=== PATIENT | male | born 1955 | race Caucasian/White ===

== ENCOUNTER 2018-07-06 11:02 | Inpatient (IN) ==
[2018-07-06] MEDS ORDERED: Chlorhexidine Gluconate 2% 1 Pack (2 Cloths) TOPICAL ONE (11:42)
[2018-07-06] MEDS ORDERED: Metoprolol Tartrate 25 MG Tablet PO ONE (11:42)
[2018-07-06] MEDS ORDERED: Dextrose 5%/NaCl 0.9% Inj 1,000 ML IV.SIG SCH (12:00)
[2018-07-06] MEDS ORDERED: Sodium Chlor 0.9% Inj 500 ML IV.SIG SCH (12:00)
--- NOTE | 2018-07-06 12:31 | XR ---
EXAM DATE: 07/06/2018 12:22 PM EDT AGE/SEX: 62 years / Male INDICATIONS: Evaluate for pneumothorax, pneumonia and communicable disease. Pre-op for colon resect ion. CLINICAL DATA: This is the patient's initial encounter. Patient reports that signs and symptoms have been present for 1 day and indicates a pain score of 0/10. MEDICAL/SURGICAL HISTORY: None. Tonsillectomy. Discectomy, lumbar. COMPARISON: No prior exams available for comparison. FINDINGS: The cardiac silhouette is enlarged in transverse diameter. The lungs are free of acute parenchymal op acity. No pulmonary nodules or pleural effusions are identified. CONCLUSION: Cardiomegaly. No acute pulmonary disease. Electronically signed by: Eric Reina MD 07/06/2018 12:30 PM EDT
[2018-07-06] MEDS ORDERED: Famotidine PF Inj 20 MG/2 ML Vial ONE (12:46)
[2018-07-06] MEDS ORDERED: fentaNYL Citrate Inj 100 MCG/2 ML Ampul ONE ×2 (12:46→15:44)
[2018-07-06] MEDS ORDERED: Bupivacaine PF 0.5% Inj 30 ML Vial ONE (13:17)
[2018-07-06] MEDS ORDERED: Glycopyrrolate Inj 1 MG/5 ML Syringe IV.PUSH ONE (13:31)
[2018-07-06] MEDS ORDERED: Lidocaine PF 1% Inj 5 ML Syringe INFILTRATN ONE (13:31)
[2018-07-06] MEDS ORDERED: Neostigmine Inj 5 MG/5 ML Syringe IV.PUSH ONE (13:31)
[2018-07-06] MEDS ORDERED: *Meperidine Inj 25 MG/ML Vial PERIprocedural Use ONLY ONE (15:38)
[2018-07-06] MEDS ORDERED: Potassium Chlor 40 mEq Premix 40 MEQ/100 ML PIGGYBACK IV.SIG PRN (15:39)
[2018-07-06] MEDS ORDERED: Potassium Chlor 20 mEq Premix 20 MEQ/100 ML PIGGYBACK IV.SIG PRN (15:39)
[2018-07-06] MEDS ORDERED: Morphine Inj 4 MG/ML Vial ONE (15:44)
[2018-07-06] MEDS ORDERED: Zolpidem Tartrate 5 MG Tablet PO PRN (15:51)
[2018-07-06] MEDS ORDERED: Ketorolac Inj 30 MG/ML (IVP) Vial IV.PUSH PRN (15:51)
[2018-07-06] MEDS ORDERED: *morphine SULFATE 4 MG/ML PERIprocedure ONLY ONE ×3 (15:53→16:13)
[2018-07-06] MEDS ORDERED: Naloxone Inj 0.4 MG/ML Vial IV.PUSH PRN (16:04)
[2018-07-06] MEDS ORDERED: Morphine Inj 30 MG/30 ML PCA.VIAL PCA ONE (16:13)
[2018-07-06] MEDS: Morphine Inj 30 MG/30 ML PCA.VIAL PCA PRN (16:15)
[2018-07-06] MEDS ORDERED: KCL 20 mEq/D5W/LR Inj 1,000 ML ONE (16:15)
[2018-07-06 16:21] LABS: Baso % (Auto) 0.3 % (0.0-2.0); Eos % (Auto) 0.3 % (0.0-4.0); Lymph # (Auto) 0.8 th/mm3 (1.0-4.8); Lymph % (Auto) 6.3 % (9.0-44.0); Mean Corpuscular HGB Conc 35.6 % (32.0-36.0); Mean Corpuscular Hemoglobin 33.8 pg (27.0-34.0); Mean Corpuscular Volume 94.7 fL (80.0-100.0); Mean Platelet Volume 7.3 fL (7.0-11.0); Mono # (Auto) 0.3 th/mm3 (0.0-0.9); Mono % (Auto) 2.8 % (0.0-8.0); Neut # (Auto) 10.9 th/mm3 (1.8-7.7); Neut % (Auto) 90.3 % (16.0-70.0); Platelet Count 174 th/mm3 (150-450); Red Blood Count 4.43 mil/mm3 (4.50-5.90); Red Cell Distribution Width 13.1 % (11.6-17.2); White Blood Count 12.1 th/mm3 (4.0-11.0)
--- NOTE | 2018-07-06 16:22 | MP ---
cc: Robert Bergman MD, Regina MD Zulfiqar,Tiffany WHITING DATE OF OPERATION: 07/06/2018 PREOPERATIVE DIAGNOSIS: Sigmoid colon cancer. POSTOPERATIVE DIAGNOSIS: Sigmoid colon cancer. PROCEDURE PERFORMED: Sigmoid colectomy, low anterior resection. ANESTHESIA: General endotracheal. SURGEON: Robert Bergman MD AIR GUN OPERATOR: Eric Hopper MD ESTIMATED BLOOD LOSS: 200 mL. OPERATIVE TIME: 1 hour and 20 minutes. OPERATIVE FINDINGS: This patient was referred to [facility] by Dr. Calixto with a bulky sigmoid colon lesion right above the rectosigmoid junction. A preoperative CT scan showed only cysts in the liver. For this reason, a sigmoid colectomy was recommended. At surgery, exploration of the abdominal cavity revealed that the liver did have multiple cysts palpable in the right lobe and the left lobe. No metastatic disease was identified. The gallbladder was palpably normal and decompressed. The stomach was also palpably normal, as was the remainder of the small bowel and the colon. No metastatic lesions were identified anywhere in the abdominal cavity. The lesion was a bulky lesion just above the cul-de-sac, requiring mobilization of the rectum to the pelvic floor and the anterior cul-de-sac. An anastomosis was done in the upper mid portion of the rectum and was approximately 12 cm from the anal verge. A double stapled colorectal anastomosis was done because of the size of the rectum. OPERATIVE TECHNIQUE: The patient was placed on the table in the supine position. After adequate general endotracheal anesthesia, the legs were placed in the perineal lithotomy position and the abdomen and perineum were prepped and draped in usual manner. A transverse infraumbilical skin incision was made and carried down through subcutaneous tissue and the rectus muscles, and the peritoneal cavity was entered with the above-mentioned findings. Next, the sigmoid colon was mobilized along its peritoneal reflection up to but not including the splenic flexure. The inferior mesenteric artery was doubly clamped, cut and doubly ligated with 0 Vicryl ligature and then the inferior mesenteric vein was clamped, cut and ligated as well. It should be mentioned that the left and right ureters were identified and protected at all times. Upon entering the retrorectal space, dissection was taken down with electrocautery to the pelvic floor and laterally. The pelvic peritoneum was incised and the rectum was mobilized. The anterior cul-de-sac was mobilized just below the lesion, which was easily palpable in the lower sigmoid. The anterior cul-de-sac was developed a portion of the way down the cul-de-sac, but not fully anteriorly. Approximately 5 cm below the lesion, the mesorectum was cleared with electrocautery and the lateral stalks were clamped, cut and ligated. Next, the cleared rectum was stapled closed with a TX 60 green staple height stapler. Because of the size of the rectum, we could not use a pursestring. Next, the rectum was divided and the point in the very redundant sigmoid colon was chosen for division. The sigmoid colon mesentery was successively clamped, cut and ligated and the sigmoid colon was cleared at the point chosen for anastomosis. Once this was cleared, the pursestring stapling device was used on the sigmoid and the bowel was divided. A #33 Ethicon EEA stapler anvil was placed in the proximal bowel and the proximal pursestring was tied. Dr. Hopper then went below and placed the EEA instrument transanally and the trocar was brought out anterior to the transverse staple line. Once this was done, the instrument was connected, closed and fired, creating the circular anastomosis. There was no tension on the anastomosis and the blood supply was excellent. Dr. Hopper then did a proctosigmoidoscopy examination, examining the anastomosis with air insufflation and saline solution in the pelvis. No air leaks were identified. The anastomosis was measured at 12 cm from the anal verge. Hemostasis was maintained throughout with electrocautery and ligature and the pelvis was irrigated with 2-3 liters of saline solution and aspirated dry. Hemostasis was checked once again and then the bowels were replaced in the abdominal cavity in an delicatessen store manager manner and the omentum was placed down over the small bowel. The abdominal cavity was then closed in layers using double-stranded #1 PDS for the posterior rectus sheath and then that layer was irrigated with a liter of saline solution. Then, the anterior rectus sheath was likewise closed with a double-stranded #1 PDS as well. The subcutaneous tissue was irrigated thoroughly with saline solution and the skin was closed with running 3-0 Vicryl subcuticular suture and a dressing was applied. It should be mentioned that a flat Geronimo drain was placed in the retrorectal space and brought out through a separate stab wound prior to closing the abdomen. Sponge, needle and instrument counts were reported as correct. Estimated blood loss was 200 mL. Operating time was 1 hour and 20 minutes. The patient tolerated the procedure well and left the operating room in good condition. MD CLEMENT Hassan/yolis , 03:38 PM , 03:50 PM
[2018-07-06] MEDS ORDERED: HYDROmorphone PF Inj 2 MG/ML Vial ONE (16:33)
[2018-07-06 16:45] LABS: Calcium 8.5 mg/dL (8.5-10.1); Carbon Dioxide 23.6 meq/L (21.0-32.0); Potassium 4.1 meq/L (3.5-5.1)
[2018-07-06] MEDS: KCL 20 mEq/D5W/LR Inj 1,000 ML IV.CONT SCH ×2 (19:33→20:29)
[2018-07-06] MEDS: ceFAZolin 2 GM/NS 100 ML IV; Q8H IV.SIG SCH ×2 (20:44)
[2018-07-06] MEDS ORDERED: ceFAZolin 2 GM Premix Inj 2 GM/50 ML PIGGYBACK IV.SIG SCH (21:00)
--- NOTE | 2018-07-06 23:24 | ECG ---
Date Performed: 07/06/2018 Time Performed: 11:53:42 PTAGE: 62 years EKG: Sinus rhythm EKG CONSISTENT WITH PULMONARY DISEASE, RVH, OR NORMAL VARIANT LEFT ANTERIOR FASCICULAR BLOCK ABNORMA L ECG NO PREVIOUS TRACING DOCTOR: Griffin Miller Interpretating Date/Time 07/06/2018 23:23:28
[2018-07-07] MEDS: KCL 20 mEq/D5W/LR Inj 1,000 ML IV.CONT SCH ×5 (02:30→21:01)
[2018-07-07 04:24] LABS: Baso % (Auto) 0.1 % (0.0-2.0); Hematocrit 41.9 % (39.0-51.0); Hemoglobin 14.6 gm/dL (13.0-17.0); Lymph # (Auto) 0.4 th/mm3 (1.0-4.8); Lymph % (Auto) 3.9 % (9.0-44.0); Mean Corpuscular HGB Conc 34.7 % (32.0-36.0); Mean Corpuscular Hemoglobin 33.1 pg (27.0-34.0); Mean Corpuscular Volume 95.3 fL (80.0-100.0); Mean Platelet Volume 7.5 fL (7.0-11.0); Mono # (Auto) 1.5 th/mm3 (0.0-0.9); Mono % (Auto) 12.7 % (0.0-8.0); Neut # (Auto) 9.5 th/mm3 (1.8-7.7); Neut % (Auto) 83.3 % (16.0-70.0); Platelet Count 184 th/mm3 (150-450); White Blood Count 11.4 th/mm3 (4.0-11.0)
[2018-07-07 04:59] LABS: Calcium 8.5 mg/dL (8.5-10.1); Carbon Dioxide 24.5 meq/L (21.0-32.0); Potassium 3.8 meq/L (3.5-5.1)
[2018-07-07] MEDS: ceFAZolin 2 GM/NS 100 ML IV; Q8H IV.SIG SCH ×4 (06:35→12:05)
[2018-07-07] MEDS: Pantoprazole Inj 40 MG Vial IV.PUSH SCH (09:08)
--- NOTE | 2018-07-07 13:55 | P.PNCS ---
Subjective Colorectal Surgery Post Op Day #: 1 Interval history: No N or V. No BMs. Pain controlled with [employer] [facility] Objective Result Diagrams: 07/07/18 04:00 07/07/18 04:00 Objective Remarks: VS-S Abd:flat,dressing dry Assessment and Plan - Plan Stable Transfer to 7N,D/C tele,D/C [employer] HEAD in AM,D/C sorto in AM. FLD ordered for AM. Regular diet on Tuesday
[2018-07-07] MEDS: Morphine Inj 30 MG/30 ML PCA.VIAL PCA PRN (15:46)
[2018-07-07] MEDS: Heparin - SQ 10,000 UNITS/ML Vial SQ SCH (20:52)
[2018-07-08] MEDS: KCL 20 mEq/D5W/LR Inj 1,000 ML IV.CONT SCH ×3 (05:01→21:25)
[2018-07-08 07:29] LABS: Baso % (Auto) 0.2 % (0.0-2.0); Eos % (Auto) 0.3 % (0.0-4.0); Hematocrit 42.2 % (39.0-51.0); Hemoglobin 14.9 gm/dL (13.0-17.0); Lymph # (Auto) 1.3 th/mm3 (1.0-4.8); Lymph % (Auto) 10.5 % (9.0-44.0); Mean Corpuscular HGB Conc 35.3 % (32.0-36.0); Mean Corpuscular Hemoglobin 33.9 pg (27.0-34.0); Mean Platelet Volume 7.8 fL (7.0-11.0); Mono # (Auto) 1.4 th/mm3 (0.0-0.9); Mono % (Auto) 12.1 % (0.0-8.0); Neut # (Auto) 9.2 th/mm3 (1.8-7.7); Neut % (Auto) 76.9 % (16.0-70.0); Platelet Count 187 th/mm3 (150-450); Red Blood Count 4.39 mil/mm3 (4.50-5.90); Red Cell Distribution Width 13.1 % (11.6-17.2)
[2018-07-08 07:45] LABS: Calcium 8.8 mg/dL (8.5-10.1); Carbon Dioxide 27.6 meq/L (21.0-32.0); Potassium 3.3 meq/L (3.5-5.1)
--- NOTE | 2018-07-08 08:58 | P.PN ---
Subjective Interval history: POD#2 s/p LAR reports pain, no nausea, no flatus Physical Exam Vital signs: Vital Signs 07/07/18 09:00 07/07/18 10:00 07/07/18 11:00 Temperature Pulse Rate 84 84 87 Respiratory Rate Blood Pressure Pulse Oximetry 07/07/18 11:39 07/07/18 12:00 07/07/18 13:00 Temperature 98.2 F Pulse Rate 84 76 67 Respiratory Rate 24 Blood Pressure 145/71 H Pulse Oximetry 95 07/07/18 14:00 07/07/18 15:35 07/07/18 16:25 Temperature 99 F Pulse Rate 89 83 Respiratory Rate 21 16 Blood Pressure 136/79 Pulse Oximetry 94 L 07/07/18 20:00 07/08/18 00:00 07/08/18 04:00 Temperature 98.5 F 99 F 97.9 F Pulse Rate 85 77 84 Respiratory Rate 20 18 18 Blood Pressure 135/83 138/90 159/94 H Pulse Oximetry 92 L 93 L 94 L Intake & Output 07/07/18 07/08/18 07/08/18 18:59 06:59 18:59 Intake Total 1000 / 1000 Output Total 1450 / 1450 2100 / 2100 810 / 810 Balance -450 / -450 -2100 / -2100 -810 / -810 Weight 96.7 kg Intake: IV 400 / 400 Ancef Inj 2,000 MG In NS Inj 80 200 / 200 ML @ 200 mls/hr IV.SIG Q8H BARBRA Rx#:[id number] Flagyl 500 MG Inj 100 ML @ 200 200 / 200 mls/hr IV.SIG Q8H BARBRA Rx#: [id number] Oral 600 / 600 Output: Urine 800 / 800 Urine Amount (Catheter) 1450 / 1450 2100 / 2100 Indwelling Urethral Catheter 1450 / 1450 2100 / 2100 Wound Drainage Right Lower Abdomen - Routine Abdominal Exam Comments: Abdomen soft, nondistended, tender Dressing c/d/i YULI serosanguinous - Urinary Catheter Management Indwelling Urethral Catheter Cath placed during this visit: yes Reason for continuing: Hourly intake/output Insertion date: 07/06/18 Results - Labs CBC & Chem 7: 07/08/18 06:09 07/08/18 06:09 Laboratory Results - last 24 hr 07/08/18 07/08/18 06:09 06:09 WBC 12.0 H RBC 4.39 L Hgb 14.9 Hct 42.2 MCV 96.0 MCH 33.9 MCHC 35.3 RDW 13.1 Plt Count 187 MPV 7.8 Neut % (Auto) 76.9 H Lymph % (Auto) 10.5 [place] % (Auto) 12.1 H Eos % (Auto) 0.3 Baso % (Auto) 0.2 Neut # (Auto) 9.2 H Lymph # (Auto) 1.3 [place] # (Auto) 1.4 H Eos # (Auto) 0.0 Baso # (Auto) 0.0 WBC Differential . Differential Comment Auto diff final Sodium 138 Potassium 3.3 L Chloride 103 Carbon Dioxide 27.6 Anion Gap 7 BUN 5 L Creatinine 0.94 Estimated GFR 82 L Random Glucose 166 H Calcium 8.8 Assessment and Plan - Assessment (1) Cancer of sigmoid colon Code(s): C18.7 - Malignant neoplasm of sigmoid colon Status: Acute - Plan Advance diet Decrease IVF Mob[employer]
[2018-07-08] MEDS: Heparin - SQ 10,000 UNITS/ML Vial SQ SCH ×2 (09:27→22:20)
[2018-07-08] MEDS: Pantoprazole Inj 40 MG Vial IV.PUSH SCH (09:27)
[2018-07-09] MEDS: KCL 20 mEq/D5W/LR Inj 1,000 ML IV.CONT SCH (06:37)
[2018-07-09 08:20] VITALS: O2SAT 93
[2018-07-09] MEDS: Pantoprazole Inj 40 MG Vial IV.PUSH SCH (09:16)
[2018-07-09] MEDS: Heparin - SQ 10,000 UNITS/ML Vial SQ SCH ×2 (09:17→21:24)
--- NOTE | 2018-07-09 10:37 | P.PN ---
Subjective Interval history: POD#3 s/p LAR comfortable, wants to go home no flatus as yet Physical Exam Vital signs: Vital Signs 07/08/18 12:00 07/08/18 16:00 07/08/18 20:00 Temperature 98.3 F 99.7 F H 99.1 F Pulse Rate 87 94 H 86 Respiratory Rate 16 20 17 Blood Pressure 147/92 H 146/85 H 142/88 H Pulse Oximetry 94 L 96 94 L 07/09/18 00:00 07/09/18 02:25 07/09/18 04:00 Temperature 99.1 F 98 F Pulse Rate 91 H 76 Respiratory Rate 15 17 17 Blood Pressure 155/83 H 124/60 Pulse Oximetry 95 95 07/09/18 08:00 Temperature 97.6 F Pulse Rate 99 H Respiratory Rate 20 Blood Pressure 149/92 H Pulse Oximetry 93 L Intake & Output 07/08/18 07/09/18 07/09/18 18:59 06:59 18:59 Intake Total 480 / 480 Output Total 1325 / 1325 Balance -1325 / -1325 480 / 480 Weight 96.9 kg Intake: Oral 480 / 480 Output: Urine 1300 / 1300 Wound Drainage 25 / 25 Right Lower Abdomen 25 / 25 Other: # Voids 2 - Routine Abdominal Exam Comments: abdomen soft, mild distension, tender wounds clean YULI serosanguinous - Urinary Catheter Management Indwelling Urethral Catheter Cath placed during this visit: yes Reason for continuing: Hourly intake/output Insertion date: 07/06/18 Results - Labs CBC & Chem 7: 07/08/18 06:09 07/08/18 06:09 Assessment and Plan - Assessment (1) Cancer of sigmoid colon Code(s): C18.7 - Malignant neoplasm of sigmoid colon Status: Acute - Plan Await bowel function [employer]
[2018-07-09 22:46] VITALS: RESP 18
[2018-07-10 08:22] VITALS: BP 125/74; PULSE 84; TEMP 98.7
[2018-07-10] MEDS: Heparin - SQ 10,000 UNITS/ML Vial SQ SCH (08:58)
[2018-07-10] MEDS: Pantoprazole Inj 40 MG Vial IV.PUSH SCH (08:59)
--- NOTE | 2018-08-17 11:35 | MD ---
cc: Robert Bergman MD DATE OF DISCHARGE: 07/10/2018 ADMITTING DIAGNOSIS: Sigmoid colon cancer. DISCHARGE DIAGNOSIS: Sigmoid colon cancer. HISTORY: This patient was referred to me by Dr. Calixto with a bulky sigmoid colon cancer right above the rectosigmoid junction. Preoperative CT scan showed only cysts in the liver. For this reason, sigmoid colectomy was recommended. LABORATORY DATA: The pathology report on the removed specimen revealed an invasive adenocarcinoma of the sigmoid colon that was 6 x 5.5 x 1.5 cm. There was no tumor perforation. It was a poorly differentiated lesion invading through the muscular propria into the pericolonic tissue. All margins were uninvolved. There was no lymphovascular invasion or perineural invasion. There was 1 tumor deposit nodule present in the mesentery. There were 3 lymph nodes out of 12 identified with metastatic disease. This was a T3N1B lesion. HOSPITAL COURSE: The patient was admitted to the hospital on 07/06/2018, and underwent a sigmoid colectomy with low anterior resection. On the first postoperative day, he was started on a clear liquid diet. On the second postoperative day, he was started on a full liquid diet. By the third postoperative day, he was started on a regular diet. He continued to improve and was discharged from the hospital on postoperative day number 4. DISCHARGE INSTRUCTIONS: He was instructed to do no driving for 2 weeks, do no heavy lifting over 10 pounds for 6 weeks, and to call me with any problems. He is instructed to followup with me in the office in 2 weeks' time. MD CLEMENT Hassan/parminder , 07:32 AM , 07:39 AM
== END 2018-07-10 11:16 | disposition home or self-care (01) ==
LOC: HSDI 11:02 → HCPC 07-07 00:37 → N07 07-07 17:44
PROVIDERS: ADMIT Colon & Rectal Surgery; ATTEND Colon & Rectal Surgery